=== PATIENT | female | born 1980 | race Caucasian/White ===

== ENCOUNTER 2017-07-31 09:37 | Emergency (ER) | payer OTHER ==
[~2017-07-31] VITALS: Ht 167.6 cm; Wt 63.0 kg
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
[2017-07-31] MEDS ORDERED: ONDANSETRON 4 MG TAB.RAPDIS SL ONE (10:00)
[2017-07-31] MEDS ORDERED: TRAMADOL HCL 50 MG TABLET PO ONE (10:00)
[2017-07-31] MEDS ORDERED: CYCLOBENZAPRINE 10 MG TABLET PO ONE (10:00)
[2017-07-31] MEDS ORDERED: TRAMADOL HCL 50 MG TABLET ONE (10:05)
[2017-07-31] MEDS ORDERED: ONDANSETRON 4 MG TAB.RAPDIS ONE (10:06)
[2017-07-31] MEDS ORDERED: CYCLOBENZAPRINE 10 MG TABLET ONE (10:06)
[2017-07-31 11:38] VITALS: BP 140/85
== END 2017-07-31 11:38 | disposition home or self-care (01) ==
LOC: ER 09:42
DX: S16.1XXA Strain of muscle, fascia and tendon at neck level, initial encounter (principal); S23.3XXA Sprain of ligaments of thoracic spine, initial encounter; V49.49XA Driver injured in collision with other motor vehicles in traffic accident, initial encounter; Y93.89 Activity, other specified; Y92.413 State road as the place of occurrence of the external cause; Y99.8 Other external cause status
CPT/HCPCS: 72040; 72074; 99284; A4606; Q0162; Z7610